=== PATIENT | female | born 1985 | race Caucasian/White ===

== ENCOUNTER 2024-01-04 10:46 | Emergency (ER) | payer OTHER, SELFPAY ==
[2024-01-04 10:51] VITALS: BP 126/82; PULSE 95; TEMP 36.9; O2SAT 108; BMI 39.7
[2024-01-04 11:11] LABS: Internal Control Within Normal Limits; Strep A Antigen Screen Negative
--- NOTE | 2024-01-04 11:20 | ED.GENADUL1 ---
HPI HPI - General Adult General Chief complaint: Upper Respiratory Infection Stated complaint: SORE THROAT, FEVER Time Seen by Provider: 01/04/24 11:10 Source: patient Mode of arrival: walk-in History of Present Illness HPI narrative: The patient is coming to us after she was exposed to a relative with RSV complaining of a cough productive of whitish sputum change in her voice and sore throat No difficulty breathing and she have a history of smoking cigarette 1 pack of cigarette daily Patient denies any history of asthma Related Data Home Medications ?Medication ?Instructions ?Recorded ?Confirmed No Known Home Medications 01/04/24 01/04/24 Previous Rx's ?Medication ?Instructions ?Recorded prednisone 20 mg tablet 40 mg (2 x 20 mg) PO DAILY 5 days 01/04/24 #10 tabs Allergies Allergy/AdvReac Type Severity Reaction Status Date / Time No Known Drug Allergies Allergy Verified 01/04/24 10:55 Opioid HPI Opioid Management Most Recent Opioid Data: No Data to Display Review of Systems ROS Status of ROS 10 or more systems reviewed and unremarkable except as noted in history and below PFSH PFSH Social History Little interest or pleasure in doing things: not at all Feeling down, depressed, or hopeless: not at all Exam Narrative Exam Narrative: Nurses notes and vital signs reviewed and patient is not hypoxic. General: Well-appearing and in no apparent distress. Skin: Warm, dry, no pallor noted. No rash. Head: Normocephalic, atraumatic. Neck: Supple, non-tender. Eye: Pupils are equal, round and EOMI. No scleral icterus. Ears, Nose, Mouth, and Throat: TM are clear, no nasal mucosal hypertrophy. Oral mucosa is moist, mild tonsillar erythema bilaterally, uvula is mid-line Cardiovascular: Regular Rate and Rhythm without murmur, gallop or rub. Respiratory: No accessory muscle use or respiratory distress. Lungs are clear to auscultation, no wheezing, rales or rhonchi Chest Wall: no tenderness Back: No midline thoracic or lumbar vertebral tenderness. No CVA tenderness Musculoskeletal: normal ROM, no calf or popliteal tenderness, no lower extremity edema/swelling GI: Abdomen is soft, non-distended. Normal bowel sounds. No masses appreciated. No tenderness to palpation. No rebound, guarding, or rigidity noted. Neurological: A&O x4. No cranial nerve dysfunction observed. No truncal ataxia. Moves all extremities. Sensation intact. Psychiatric: Cooperative and interactive. Normal mood and affect. Constitutional Vital Signs, click to edit/add: Last Vital Signs Temp 98.4 F 01/04/24 10:51 Pulse 95 H 01/04/24 11:37 Resp 18 01/04/24 10:51 BP 126/82 01/04/24 10:51 Pulse Ox 98 01/04/24 11:37 O2 Del Method Room Air 01/04/24 11:37 Course Vital Signs Vital signs: Vital Signs Temperature 98.4 F 01/04/24 10:51 Pulse Rate 95 H 01/04/24 10:51 Respiratory Rate 18 01/04/24 10:51 Blood Pressure 126/82 01/04/24 10:51 Pulse Oximetry 108 H 01/04/24 10:51 Temperature 98.4 F 01/04/24 10:51 Pulse Rate 95 H 01/04/24 11:37 Respiratory Rate 18 01/04/24 10:51 Blood Pressure 126/82 01/04/24 10:51 Pulse Oximetry 98 01/04/24 11:37 Oxygen Delivery Method Room Air 01/04/24 11:37 Medical Decision Making MDM Narrative Medical decision making narrative: Strep test is negative The patient being evaluated right now for viral infection mostly causing her to have laryngitis and bronchitis she was treated in the ER with prednisone discharged home with continue with supportive care with Mucinex prednisone and hydration The patient is to follow up with primary care physician in next 2-3 days or to return to the emergency department should any of the signs or symptoms worsen or new symptoms develop. The patient agrees with the following Diagnosis and Treatment plan and the patient will be discharged home. Lab Data Labs: Lab Results 01/04/24 Range/Units 10:56 Streptococcus Screen Negative Discharge Plan Discharge Chief Complaint: Upper Respiratory Infection Clinical Impression: Laryngitis, Bronchitis Patient Disposition: Home, Self-Care Time of Disposition Decision: 11:21 Condition: Good Prescriptions / Home Meds: New prednisone 20 mg tablet 40 mg PO DAILY 5 Days Qty: 10 0RF No Action No Known Home Medications Print Language: Mongolian Instructions: Laryngitis (ED), Acute Bronchitis (ED) Referrals: SHANE CAICEDO [Primary Care Provider] - 1 week Discharge Date/Time: 01/04/24 11:49
[2024-01-04] MEDS: PREDNISONE 20 MG TABLET 40 MG PO (11:34)
[2024-01-04] MEDS: IPRATROPIUM/ALBUTEROL SULFATE 3 ML AMPUL.NEB IH (11:36)
[2024-01-04 11:37] VITALS: PULSE 95; O2SAT 98
== END 2024-01-04 11:49 | disposition home or self-care (01) ==
PROVIDERS: Emergency Provider Emergency Medicine; PCP Nurse Practitioner Family
DX: J04.0 Acute laryngitis (principal); J40 Bronchitis, not specified as acute or chronic; Z87.891 Personal history of nicotine dependence
CPT/HCPCS: 87070; 87880; 94640; 99284; J7512